=== PATIENT | female | born 1995 | race Hispanic/Latino ===

== ENCOUNTER 2021-05-30 13:20 | Emergency (ER) | payer BC ==
[2021-05-30] MEDS ORDERED: Ketorolac Tromethamine 30 MG/ML VIAL ONE (14:03)
== END 2021-05-30 14:48 | disposition home or self-care (01) ==
LOC: CSHERS 13:20
DX: M54.6 Pain in thoracic spine (principal)
CPT/HCPCS: 96372; 99283; J1885